=== PATIENT | female | born 1965 ===

== ENCOUNTER → 2016-10-13 | Outpatient (CLI) | payer OTHER | LOC: BMCIMAGING 14:27 | PROVIDERS: ATTEND Physician Assistant | DX: M25.561 Pain in right knee (principal); E66.01 Morbid (severe) obesity due to excess calories ==

== ENCOUNTER → 2017-07-18 | Outpatient (CLI) | payer SELFPAY | LOC: BMCIMAGING 14:04 | PROVIDERS: ATTEND Family Medicine | DX: M25.561 Pain in right knee (principal) ==